=== PATIENT | female | born 1985 ===

== ENCOUNTER 2025-05-20 08:41 | Emergency (ER) | payer BC ==
[2025-05-20] MEDS ORDERED: Sodium Chloride 0.9% 2.5 ML Syringe FLUSH PRN (08:43)
[2025-05-20] MEDS ORDERED: Sodium Chloride 0.9% 10 ML Syringe FLUSH PRN (08:43)
[2025-05-20] MEDS: Iopamidol 755 MG/ML 500 ML Multipack Bottle IVPUSH STA (09:10)
[2025-05-20 09:11] LABS: BASOPHILS ABSOLUTE AUTO 0.04 K/uL (0.00-0.20); BASOPHILS PERCENT AUTO 0.5 % (0.0-1.0); EOSINOPHILS ABSOLUTE AUTO 0.55 K/uL (0.00-0.45); EOSINOPHILS PERCENT AUTO 6.8 % (0.0-6.0); IMMATURE GRAN ABSOLUTE AUTO 0.03 K/uL (0.00-0.05); IMMATURE GRAN PERCENT AUTO 0.4 % (0.0-0.4); LYMPHOCYTES ABSOLUTE AUTO 2.85 K/uL (1.00-4.80); LYMPHOCYTES PERCENT AUTO 35.2 % (24.0-44.0); MEAN PLATELET VOLUME 9.0 fL (9.4-12.3); MONOCYTES ABSOLUTE AUTO 0.57 K/uL (0.00-0.80); MONOCYTES PERCENT AUTO 7.0 % (0.0-8.0); NEUTROPHILS ABSOLUTE AUTO 4.05 K/uL (1.80-7.70); NEUTROPHILS PERCENT AUTO 50.1 % (41.0-71.0); NRBC ABSOLUTE 0.00 K/uL (0.00-0.02); NRBC PERCENT 0.0 /100WBC (0.0-0.2); PLATELET COUNT,PLT 371 K/uL (150-400); RED BLOOD CELL COUNT 4.62 M/uL (4.10-5.30); WHITE BLOOD CELL COUNT,WBC 8.09 K/uL (3.9-11.3)
[2025-05-20] MEDS: cefTRIAXone 2 GM in Water For Injection, Sterile 20 ML IVPUSH ONE (09:34)
== END 2025-05-20 09:50 | disposition home or self-care (01) ==
LOC: MW.ED 08:41
DX: J18.9 Pneumonia, unspecified organism (principal); J42 Unspecified chronic bronchitis; Z88.5 Allergy status to narcotic agent; Z79.899 Other long term (current) drug therapy
CPT/HCPCS: 36415; 71260; 85025; 96374; 99285; A4216; J0696; Q9967; 99283